=== PATIENT | male | born 1950 | race Caucasian/White ===

== ENCOUNTER 2022-01-21 09:02 | Emergency (ER) | payer MEDICARE, SELFPAY ==
[2022-01-21] VITALS (8 sets, daily range): BP systolic 151–192; BP diastolic 97–134; PULSE 74–80; RESP 14–20; TEMP 36.6; O2SAT 98–99; BMI 29.9
--- NOTE | 2022-01-21 09:12 | CT_ITS ---
WS: [id number] CT HEAD TECHNIQUE: Noncontrast CT of the head obtained from the skullbase to the vertex. CLINICAL INFORMATION: burry COMPARISON: None. DLP: 1253.[address] scans at [facility] use at least one of these dose optimization techniques: automated e xposure control; mA and/or kV adjustment per patient size (includes targeted exams where dose is matc hed to clinical indication); or iterative reconstruction. FINDINGS: No evidence of intracranial hemorrhage or mass effect. Ventricular system and basal cisterns are hamilton nt. Moderate small vessel changes with moderate parenchymal volume loss. Chronic lacunar infarcts RIG HT greater than LEFT involving the RIGHT reinoso radiata, RIGHT basal ganglia, and RIGHT thalamus. Polypoid mucosal thickening paranasal sinuses. Mastoid air cells well aerated. CT/CT head wo con* [id number] IMPRESSION: 1. No evidence of intracranial hemorrhage or mass effect. 2. Moderate small vessel changes. Moderate parenchymal volume loss. 3. Chronic lacunar infarcts in the RIGHT greater than LEFT basal ganglia and p ons RIGHT thalamus and reinoso radiata. 4. Intracranial vascular calcification. 5. Mastoid air cells well aerated. 6. Polypoid mucosal thickening paranasal sinuses. 7. No acute intracranial findings.
--- NOTE | 2022-01-21 09:18 | ECG_ITS ---
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 Measurements Intervals [place] Rate: 61 P: 69 OK: 142 QRS: 33 QRSD: 91 T: 74 QT: 391 QTc: 394 Interpretive Statements SINUS RHYTHM No previous ECG available for comparison Electronically Signed On 01-21-2022 12:46:13 CDT by Mahsa Kingston M.D. [id number]
[2022-01-21 09:22] LABS: Basophils % 0.4 %; Eosinophils # 0.1 10^3/uL (0.0-0.8); Eosinophils % 1.9 %; Hematocrit 50.4 % (42.0-52.0); Hemoglobin 16.6 g/dL (11.7-16.6); Lymphocytes # 1.5 10^3/uL (0.8-4.8); Lymphocytes % 21.2 %; Mean Corpuscular HGB Conc 32.9 g/dL (30.0-36.0); Mean Platelet Volume 10.5 fL (7.4-10.4); Monocytes # 0.6 10^3/uL (0.2-0.9); Monocytes % 8.4 %; Neutrophils # 4.93 10^3/uL (1.8-7.7); Neutrophils % 67.8 %; Nucleated Red Blood Cells % 0 %; Platelet Count 202 10^3/cmm (130-400); Red Blood Count 5.54 10^6/uL (4.1-5.3); Red Cell Distribution Width 12.8 % (12.1-15.1); White Blood Count 7.3 10^3/uL (4.0-10.0)
[2022-01-21] MEDS: hyDRALAzine 20 mg/mL INJ 1 mL IVP (09:30)
[2022-01-21 09:38] LABS: Alanine Aminotransferase 17 U/L (0-41); Alkaline Phosphatase 74 U/L (40-130); Anion Gap 14.9 (5-19); Aspartate Amino Transferase 16 U/L (0-40); Blood Urea Nitrogen 9 mg/dL (8-23); Carbon Dioxide 20 mmol/L (22-29); Chloride 106 mmol/L (98-107); Globulin 3.1 g/dL (1.3-4.6); Glucose 112 mg/dL (65-115); Osmolality Calculated 283 mOsm/kg (285-295); Potassium 3.9 mmol/L (3.5-5.1); Sodium 137 mmol/L (136-145); Total Bilirubin 0.7 mg/dL (0.15-1.2); Total Protein 7.1 g/dL (6.6-8.7)
--- NOTE | 2022-01-21 09:45 | ED_ITS ---
HPI - Dizziness General: Chief Complaint: Dizziness Stated Complaint: Murray/ Dizzy, Blurred Vision Time Seen by Provider: 01/21/22 09:10 Source: patient Mode of arrival: ambulatory History of Present Illness: HPI Narrative: 71-year-old male presents emergency department headache dizziness where he describes as a brain fog. He has had it intermittently for last couple days at 1 point he had some visual disturbance. Speech has been clear his visual disturbance has resolved. He has elevated blood pressure but is not taking medications nor has he in the past. MD elicited complaint: dizziness and lightheadedness Course Vital Signs: Vital signs: Vital Signs Temperature 98 F 01/21/22 09:03 Pulse Rate 74 01/21/22 10:30 Respiratory Rate 16 01/21/22 10:30 Blood Pressure 187/134 01/21/22 10:30 Pulse Oximetry 99 01/21/22 10:30 Oxygen Delivery Me thod 01/21/22 09:45 MDM - Dizziness Medical Decision Making Focal neurologic deficits noted. There is evidence of previous stroke. We will add amlodipine and lisinopril to control his blood pressure also add clopidogrel and atorvastatin based on the evidence of old strokes. We will get him set up to see outpatient primary care. If he has any worsening or change symptoms recheck. Medical Records I reviewed the patient's medical records. Lab Data I reviewed the patient's lab results. : 01/21/22 09:10 01/21/22 09:[address] 01/21/22 09:12 IMPRESSION: 1. No evidence of intracranial hemorrhage or mass effect. 2. Moderate small vessel changes. Moderate parenchymal volume loss. 3. Chronic lacunar infarcts in the RIGHT greater than LEFT basal ganglia and ninoska RIGHT thalamus and reinoso radiata. 4. Intracranial vascular calcification. 5. Mastoid air cells well aerated. 6. Polypoid mucosal thickening paranasal sinuses. 7. No acute intracranial findings. Laboratory Results WBC 7.3 10^3/uL (4.0-10.0) 01/21/22 09:10 RBC 5.54 10^6/uL (4.1-5.3) H 01/21/22 09:10 Hgb 16.6 g/dL (11.7-16.6) 01/21/22 09:10 Hct 50.4 % (42.0-52.0) 01/21/22 09:10 MCV 91.0 fl (80-94) 01/21/22 09:10 MCH 30.0 pg (28.0-34.0) 01/21/22 09:10 MCHC 32.9 g/dL (30.0-36.0) 01/21/22 09:10 RDW 12.8 % (12.1-15.1) 01/21/22 09:10 Plt Count 202 10^3/cmm (130-400) 01/21/22 09:10 MPV 10.5 fL (7.4-10.4) H 01/21/22 09:10 Neut % (Auto) 67.8 % 01/21/22 09:10 Lymph % (Auto) 21.2 % 01/21/22 09:10 [place] % (Auto) 8.4 % 01/21/22 09:10 Eos % (Auto) 1.9 % 01/21/22 09:10 Baso % (Auto) 0.4 % 01/21/22 09:10 Neut # (Auto) 4.93 10^3/uL (1.8-7.7) 01/21/22 09:10 Lymph # (Auto) 1.5 10^3/uL (0.8-4.8) 01/21/22 09:10 [place] # (Auto) 0.6 10^3/uL (0.2-0.9) 01/21/22 09:10 Eos # (Auto) 0.1 10^3/uL (0.0-0.8) 01/21/22 09:10 Baso # (Auto) 0.0 10^3/uL (0.0-0.1) 01/21/22 09:10 Nucleated RBC % (auto) 0 % 01/21/22 09:10 Nucleated RBCs # 0.0 /100WBC 01/21/22 09:10 Sodium 137 mmol/L (136-145) 01/21/22 09:10 Potassium 3.9 mmol/L (3.5-5.1) 01/21/22 09:10 Chloride 106 mmol/L (98-107) 01/21/22 09:10 Carbon Dioxide 20 mmol/L (22-29) L 01/21/22 09:10 Anion Gap 14.9 (5-19) 01/21/22 09:10 BUN 9 mg/dL (8-23) 01/21/22 09:10 Creatinine 0.9 mg/dL (0.7-1.2) 01/21/22 09:10 GFR Calculation Not Reportable 01/21/22 09:10 Glucose 112 mg/dL (65-115) 01/21/22 09:10 Calculated Osmolality 283 mOsm/kg (285-295) L 01/21/22 09:10 Calcium 9.0 mg/dL (8.5-10.5) 01/21/22 09:10 Total Bilirubin 0.7 mg/dL (0.15-1.2) 01/21/22 09:10 AST 16 U/L (0-40) 01/21/22 09:10 ALT 17 U/L (0-41) 01/21/22 09:10 Alkaline Phosphatase 74 U/L (40-130) 01/21/22 09:10 Total Protein 7.1 g/dL (6.6-8.7) 01/21/22 09:10 Albumin 4.0 g/dL (3.5-5.2) 01/21/22 09:10 Globulin 3.1 g/dL (1.3-4.6) 01/21/22 09:10 Discharge Plan Discharge Patient Disposition: Home Clinical Impression: Benign essential HTN Condition: Stable Prescriptions: New amlodipine 10 mg tablet 10 mg PO DAILY Qty: 30 0RF lisinopril 10 mg tablet 10 mg PO DAILY Qty: 30 0RF atorvastatin 40 mg tablet 40 mg PO DAILY Qty: 30 0RF clopidogrel 75 mg tablet 75 mg PO DAILY Qty: 30 0RF Discharge Orders: Discharge ED (Routine); Ordered 01/21/22 Ordered By: Nick Clinton Discharge Diet: Usual diet Discharge Activity: Resume usual activity Patient Instructions: Opioid Safety, Pain Management Activity Restrictions/Additional Instructions: chemistry account manager will make arrangements for you to follow-up with primary care. Coding Level of Care Code ED Telephonic Case Manager for Bc Richards
[2022-01-21] MEDS: amlodipine 10 mg Tablet PO (10:16)
[2022-01-21] MEDS: lisinopril 20 mg Tablet PO (10:16)
--- NOTE | 2022-01-22 10:23 | DCPLANNER ---
sales and production manager had message to speak with patient about getting established with a primary care physician, unable to speak with patient at this time, and unable to leave a voicemail for patient.
== END 2022-01-21 10:45 | disposition home or self-care (01) ==
PROVIDERS: Emergency Provider Family Medicine
DX: I10 Essential (primary) hypertension (principal); Z86.73 Personal history of transient ischemic attack (TIA), and cerebral infarction without residual deficits
CPT/HCPCS: 36415; 70450; 80053; 85025; 93005; 96374; 99285; J0360

== ENCOUNTER → 2022-01-26 12:04 | Outpatient (BNVA) | payer MEDICARE, SELFPAY | PROVIDERS: Visit Provider Nurse Practitioner Family | DX: I10 Essential (primary) hypertension (principal); Z12.5 Encounter for screening for malignant neoplasm of prostate; F17.200 Nicotine dependence, unspecified, uncomplicated; R06.09 Other forms of dyspnea | CPT/HCPCS: 80061; 84443; G0103 ==

== ENCOUNTER 2022-02-02 18:24 | Emergency (ER) | payer MEDICARE, SELFPAY ==
[2022-02-02 18:46] VITALS: BP 145/83; PULSE 90; RESP 16; TEMP 36.8; O2SAT 95
--- NOTE | 2022-02-02 18:51 | ECG_ITS ---
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 Measurements Intervals [place] Rate: 66 P: 77 OK: 137 QRS: 56 QRSD: 93 T: 72 QT: 381 QTc: 402 Interpretive Statements SINUS RHYTHM INCOMPLETE RIGHT BUNDLE BRANCH BLOCK [90+ ms QRS DURATION, TERMINAL R IN V1/V2, 40+ ms S IN I/aVL/V4/V5/V6] Compared to ECG 01/21/2022 09:18:09 Incomplete right bundle-branch block now present Electronically Signed On 02-02-2022 22:43:37 CDT by Albert Yin M.D. [id number]
--- NOTE | 2022-02-02 19:26 | XRR_ITS ---
PROCEDURE INFORMATION: Exam: XR Chest Exam date and time: 02/02/2022 7:33 PM Age: 71 years old Clinical indication: Dyspnea; Additional info: SOB TECHNIQUE: Imaging protocol: Radiologic exam of the chest. Views: 1 view. COMPARISON: No relevant prior studies available. FINDINGS: Lungs: Unremarkable. No consolidation. Pleural spaces: Unremarkable. No pleural effusion. No pneumothorax. Heart/Mediastinum: Unremarkable. No cardiomegaly. Bones/joints: Unremarkable. XR/XR chest 1V portable [id number] IMPRESSION: No acute findings.
[2022-02-02 19:42] LABS: Basophils % 0.5 %; Eosinophils # 0.3 10^3/uL (0.0-0.8); Eosinophils % 4.3 %; Hematocrit 46.7 % (42.0-52.0); Hemoglobin 15.6 g/dL (11.7-16.6); Lymphocytes # 1.8 10^3/uL (0.8-4.8); Lymphocytes % 22.6 %; Mean Corpuscular HGB Conc 33.4 g/dL (30.0-36.0); Mean Corpuscular Hemoglobin 29.7 pg (28.0-34.0); Monocytes # 0.7 10^3/uL (0.2-0.9); Monocytes % 8.5 %; Neutrophils # 4.94 10^3/uL (1.8-7.7); Neutrophils % 63.7 %; Nucleated Red Blood Cells % 0 %; Platelet Count 255 10^3/cmm (130-400); Red Blood Count 5.25 10^6/uL (4.1-5.3); Red Cell Distribution Width 12.7 % (12.1-15.1); White Blood Count 7.8 10^3/uL (4.0-10.0)
[2022-02-02 19:43] VITALS: BP 140/86; PULSE 83; RESP 18; O2SAT 94
--- NOTE | 2022-02-02 19:51 | CTR_ITS ---
PROCEDURE INFORMATION: Exam: CT Head Without Contrast Exam date and time: 02/02/2022 8:25 PM Age: 71 years old Clinical indication: Condition or disease; Other: Parasthesia left side. Hbp; Additional info: Paresthesia on the left side, no difficulty speaking TECHNIQUE: Imaging protocol: Computed tomography of the head without contrast. Radiation optimization: All CT scans at this facility use at least one of these dose optimization techniques: automated exposure control; mA and/or kV adjustment per patient size (includes targeted exams where dose is matched to clinical indication); or iterative reconstruction. COMPARISON: CT head wo con* [id number] 01/21/2022 9:22 AM RADIATION DOSE METRICS: Total DLP (mGy-cm): 1110.88 FINDINGS: Brain: Mild to moderate severity diffuse cerebral cortical volume loss. Negative for intracranial hemorrhage. No acute brain ischemia is identified. No intracranial mass.There is mild diffuse heterogeneity of the white matter attenuation, consistent with chronic white matter ischemic changes. Rosenthal matter and white matter interfaces are preserved. Suspect small chronic bilateral basal ganglia lacunar infarcts. Cerebral ventricles: No ventriculomegaly. Paranasal sinuses: Visualized sinuses are unremarkable. No fluid levels. Mastoid air cells: Visualized mastoid air cells are well aerated. Bones/joints: Unremarkable. No acute fracture. Soft tissues: Unremarkable. CT/CT head wo con* [id number] IMPRESSION: 1. Negative for acute intracranial abnormality. 2. Stable exam from comparison.
[2022-02-02 19:54] LABS: INR 1.03 (0.8-1.2)
--- NOTE | 2022-02-02 19:55 | W.ED.GENADLT ---
HPI - General Adult General: Chief complaint: General Medical Stated complaint: SOB\High Blood Pressure Time Seen by Provider: 02/02/22 19:24 Source: patient Mode of arrival: ambulatory Limitations: no limitations History of Present Illness: 71-year-old male who states that he started having some paresthesias yesterday that is continued today states its gotten worse over the last 4 hours he states he has had some numbness to his left leg and some slight numbness to his left arm he denies any weakness no slurred speech no vision changes he is recently seen here and diagnosed with new onset hypertension has been taking blood pressure medicine he states his blood pressures been running little high at home here is normal denies chest pain denies shortness of breath. Associated symptoms: Deny chest pain, dyspnea, nausea, rash or vomiting Review of Systems Const: Denies: fever(s), chills, body aches or change in appetite Eyes: Denies: blurry vision or eye discomfort ENMT: Denies: throat pain or dental pain Card: Denies: chest pain Resp: Denies: dyspnea GI: Denies: abdominal pain, nausea, vomiting or diarrhea : Denies: dysuria Musc: Denies: neck pain or back pain Skin/Breast: Denies: rash Neuro: Reports: numbness in extremities Psych: Denies: depression Jeremy/Lymph: Denies: easy bruising All/Imm: Denies: urticaria PFSH ED PFSH: Social History Smoking and tobacco status: never smoked Physical Exam Const: COMMON NORMALS: no acute distress, patient oriented x3 and healthy appearing HENMT: COMMON NORMALS: normocephalic and atraumatic HEAD & SCALP: normocephalic and atraumatic Eye: COMMON NORMALS: Equal, round and reactive pupils present and EOMs intact bilaterally PUPIL: Yes Equal, round and reactive pupils present Neck/C-Spine: COMMON NORMALS: full ROM and supple Chest: COMMONS NORMALS: normal inspection of the chest and normal palpation of entire chest wall Resp: COMMON NORMALS: normal respiratory effort, No retractions, No use of accessory muscles and clear to auscultation bilaterally AUSCULTATION: clear to auscultation bilaterally Cardio: COMMON NORMALS: regular rate, regular rhythm and No murmurs present (Cardio) RATE: regular rate RHYTHM: regular rhythm GI: COMMON NORMALS: Normal to inspection, nondistended, normoactive bowel sounds present, Soft to palpation, non-tender and no masses PALPATION: Yes Soft to palpation Extremity: COMMON NORMALS: normal to inspection and full ROM Neuro: COMMON NORMALS: patient oriented x3, moves all extremities and no focal motor deficits Psych: COMMON NORMALS: mental status grossly normal, Normal thought process present and cooperative THOUGHT PROCESS: Normal thought process present Skin: COMMON NORMALS: no rashes or lesions noted and no wounds GENERAL SKIN EXAM: no rashes or lesions noted Course Vital Signs: Vital signs: Vital Signs Temperature 98.3 F 02/02/22 18:46 Pulse Rate 80 02/02/22 21:04 Respiratory Rate 16 02/02/22 21:04 Blood Pressure 148/98 02/02/22 21:04 Pulse Oximetry 97 02/02/22 21:04 Oxygen Delivery Me thod 02/02/22 19:43 MDM - General Adult Medical Decision Making Patient presents here with paresthesias to the left side he has no other findings on exam his head CT here is normal I spoke to him at length did offer him admission for an MRI he states that he rather follow-up with his PCP and have an MRI outpatient insulin he could be having a mild stroke we could not ruled out he still would like to go home I informed if he has any worsening symptoms he is to return immediately he understands agrees to plan he does already take a baby aspirin a day. Lab Data : 02/02/22 19:35 02/02/22 19:35 Radiology Impressions Chest X-Ray 02/02/22 19:26 IMPRESSION: No acute findings. Head CT 02/02/22 19:51 IMPRESSION: 1. Negative for acute intracranial abnormality. 2. Stable exam from comparison. Laboratory Results WBC 7.8 10^3/uL (4.0-10.0) 02/02/22 19:35 RBC 5.25 10^6/uL (4.1-5.3) 02/02/22 19:35 Hgb 15.6 g/dL (11.7-16.6) 02/02/22 19:35 Hct 46.7 % (42.0-52.0) 02/02/22 19:35 MCV 89.0 fl (80-94) 02/02/22 19:35 MCH 29.7 pg (28.0-34.0) 02/02/22 19:35 MCHC 33.4 g/dL (30.0-36.0) 02/02/22 19:35 RDW 12.7 % (12.1-15.1) 02/02/22 19:35 Plt Count 255 10^3/cmm (130-400) 02/02/22 19:35 MPV 9.0 fL (7.4-10.4) 02/02/22 19:35 Neut % (Auto) 63.7 % 02/02/22 19:35 Lymph % (Auto) 22.6 % 02/02/22 19:35 [place] % (Auto) 8.5 % 02/02/22 19:35 Eos % (Auto) 4.3 % 02/02/22 19:35 Baso % (Auto) 0.5 % 02/02/22:35 Neut # (Auto) 4.94 10^3/uL (1.8-7.7) 02/02/22 19:35 Lymph # (Auto) 1.8 10^3/uL (0.8-4.8) 02/02/22 19:35 [place] # (Auto) 0.7 10^3/uL (0.2-0.9) 02/02/22 19:35 Eos # (Auto) 0.3 10^3/uL (0.0-0.8) 02/02/22 19:35 Baso # (Auto) 0.0 10^3/uL (0.0-0.1) 02/02/22 19:35 Nucleated RBC % (auto) 0 % 02/02/22 19:35 Nucleated RBCs # 0.0 /100WBC 02/02/22 19:35 PT 13.80 SECONDS (12.1-14.9) 02/02/22:35 INR 1.03 (0.8-1.2) 02/02/22 19:35 Sodium 138 mmol/L (136-145) 02/02/22 19:35 Potassium 4.1 mmol/L (3.5-5.1) 02/02/22 19:35 Chloride 103 mmol/L (98-107) 02/02/22 19:35 Carbon Dioxide 26 mmol/L (22-29) 02/02/22 19:35 Anion Gap 13.1 (5-19) 02/02/22 19:35 BUN 15 mg/dL (8-23) 02/02/22 19:35 Creatinine 0.8 mg/dL (0.7-1.2) 02/02/22 19:35 GFR Calculation Not Reportable 02/02/22 19:35 Glucose 107 mg/dL (65-115) 02/02/22 19:35 Calculated Osmolality 287 mOsm/kg (285-295) 02/02/22 19:35 Calcium 9.2 mg/dL (8.5-10.5) 02/02/22 19:35 Total Bilirubin 0.4 mg/dL (0.15-1.2) 02/02/22 19:35 AST 15 U/L (0-40) 02/02/22 19:35 ALT 13 U/L (0-41) 02/02/22 19:35 Alkaline Phosphatase 77 U/L (40-130) 02/02/22 19:35 Troponin T Baseline 13 ng/L (0-15) 02/02/22 19:35 NT-Pro-B Natriuret Pep 151 pg/mL (0-125) H 02/02/22 19:35 Total Protein 6.9 g/dL (6.6-8.7) 02/02/22 19:35 Albumin 3.9 g/dL (3.5-5.2) 02/02/22 19:35 Globulin 3.0 g/dL (1.3-4.6) 02/02/22 19:35 EKG Data EKG 1: I personally reviewed and interpreted this EKG as follows: EKG interpretation date: 02/02/22 EKG interpretation time: 19:31 Interpretation: nsr hr [address] or t wave abnormalities qrs 93 qtc 395 Computer generated interpretation: Chest X-Ray 02/02/22 19:26 IMPRESSION: No acute findings. Head CT 02/02/22 19:51 IMPRESSION: 1. Negative for acute intracranial abnormality. 2. Stable exam from comparison. Discharge Plan Discharge Patient Disposition: Home Clinical Impression: Paresthesia Condition: Stable Prescriptions: No Action aspirin 81 mg tablet,chewable 81 mg PO DAILY lisinopril 20 mg tablet 20 mg PO DAILY 30 Days Qty: 30 0RF amlodipine 10 mg tablet 10 mg PO DAILY Qty: 30 0RF Multi-Day Tablet 1 tab PO DAILY Discharge Orders: Discharge ED (Routine); Ordered 02/02/22 Ordered By: Acosta Welch Discharge Diet: Advance as tolerated Discharge Activity: Resume usual activity Patient Instructions: Paresthesia (ED) Coding Level of Care Code ED Stock Handler Floorperson for Bc Richards Exam Comprehensive NIH stroke score NIHSS Level Of Consciousness - 1a: 0 Level Of Consciousness Questions - 1b: Both Correct Level Of Consciousness Commands - 1c: Both Correct Best Gaze - 2: Normal Visual Hernandez - 3: No Visual Loss Facial Palsy - 4: Normal Motor Arm Right - 5: No Drift Motor Arm Left - 5: No Drift Motor Leg Right - 6: No Drift Motor Leg Left - 6: No Drift Limb Ataxia - 7: Absent Sensory - 8: Normal Best Language - 9: No Aphasia Dysarthia - 10: Normal Extinction And Inattention - 11: 0 Score Total Score: 0
[2022-02-02 20:10] LABS: Troponin(5th) Baseline 13 ng/L (0-15)
[2022-02-02 20:19] LABS: Alanine Aminotransferase 13 U/L (0-41); Albumin Level 3.9 g/dL (3.5-5.2); Alkaline Phosphatase 77 U/L (40-130); Aspartate Amino Transferase 15 U/L (0-40); Blood Urea Nitrogen 15 mg/dL (8-23); Calcium 9.2 mg/dL (8.5-10.5); Carbon Dioxide 26 mmol/L (22-29); Chloride 103 mmol/L (98-107); Glucose 107 mg/dL (65-115); NT Pro B Type Natriuretic Pept 151 pg/mL (0-125); Osmolality Calculated 287 mOsm/kg (285-295); Sodium 138 mmol/L (136-145); Total Bilirubin 0.4 mg/dL (0.15-1.2); Total Protein 6.9 g/dL (6.6-8.7)
[2022-02-02 20:31] LABS: Anion Gap 13.1 (5-19); Potassium 4.1 mmol/L (3.5-5.1)
[2022-02-02 21:04] VITALS: BP 148/98; PULSE 80; RESP 16; O2SAT 97
== END 2022-02-02 21:05 | disposition home or self-care (01) ==
PROVIDERS: Emergency Provider Emergency Medicine
DX: R20.2 Paresthesia of skin (principal); I10 Essential (primary) hypertension; Z79.82 Long term (current) use of aspirin
CPT/HCPCS: 36415; 70450; 71045; 80053; 83880; 84484; 85025; 85610; 93005; 99285

== ENCOUNTER 2022-03-31 09:05 | Outpatient (CLI) | payer MEDICARE, SELFPAY ==
--- NOTE | 2022-03-31 09:17 | USCV_ITS ---
Azael Fulton Age: 69 Gender: M : 09/28/1952 Exam Date: 03/31/2022 10:31 Ordering Phys: Shahid George MD Technologist: Exam Location: [facility] [place]_ Indication: paresthesia RIGHT LEFT Brachial 140.00 mmHg Brachial 142.00 mmHg Pressure (mmHg) Waveform Pressure (mmHg) Waveform 149.00 A/C TECH 150.0 151.00 DPA 146.0 1.06 Ankle/Brachial Index 1.06 FINDINGS The DIONISIO 1.06 bilaterally CONCLUSIONS Normal resting ABIs bilaterally. No significant arterial obstruction, based on the above findings. Dr Jamel Anthony MD [facility] (Electronically Signed) Final Date: 31 March 2022 21:28 S
--- NOTE | 2022-03-31 09:17 | MR_ITS ---
WS: [id number] MRI BRAIN WITHOUT CONTRAST HISTORY: PARESTHESIA OF LEFT ARM/LEG COMPARISON: CT head 02/02/2022 TECHNIQUE: Diffusion imaging, multiplanar T1, T2 and FLAIR imaging obtained. Small acute lacunar infarct posterior RIGHT temporal lobe. There is an additional very tiny subcortic al infarct in the posterior LEFT parietal occipital region. No definite additional infarcts. Mild atrophy. There is significant T2 and FLAIR signal hyperintensity in a periventricular and subcor tical white matter distribution. Some of these infarcts do appear perpendicular to the corpus callosu m. There are a few scattered susceptibility hypointensities. Small susceptibility lesion in the RIGHT cerebellum. Small bilateral thalamic and LEFT basal ganglia hemosiderin deposits. Ventricles and extra-axial spaces are normal. No inferior displacement of cerebellar tonsils. The sella turcica and pituitary gland are unremarkabl e. Dural venous sinuses and king [place] of [place] demonstrate no abnormality on this unenhanced studies. Paranasal sinuses: Marked mucoperiosteal thickening throughout the ethmoid air cells and mucoperioste al thickening involving the nasal turbinates and the lining of the maxillary sinuses. Mastoid air cells: Normal. Calvarium and scalp: Intact. MR/MR head wo con* [id number] IMPRESSION: 1. Very small acute lacunar infarcts in the posterior RIGHT temporal and poste rior LEFT parieto-occipital lobes. Due to separate arterial distributions consi rodolfo embolic source. Cardiac evaluation may be of benefit. 2. There are also small scattered hemosiderin depositions which may indicate a myloid angiopathy. 3. Moderate small vessel ischemic type changes throughout the white matter. Du e to the extent of disease consider vasculitis or demyelination. These findings also may be due to long-term hypertension or diabetes. 4. Marked thickening of the nasal turbinates with chronic sinusitis disease.
== END 2022-03-31 09:06 | disposition home or self-care (01) ==
PROVIDERS: Visit Provider Family Medicine
DX: R20.2 Paresthesia of skin (principal); I63.9 Cerebral infarction, unspecified; J32.9 Chronic sinusitis, unspecified
CPT/HCPCS: 70551; 93922

== ENCOUNTER 2022-04-17 10:52 | Outpatient (CLI) | payer MEDICARE, SELFPAY ==
--- NOTE | 2022-04-17 11:11 | USCV_ITS ---
Azael Fulton Age: 69 Gender: M : 09/28/1952 Exam Date: 04/17/2022 11:21 Ordering Phys: Shahid George MD Technologist: Brenad Muñiz [place]am [place] [facility] [place]ication: CVA BP: / HR: 75 Rhythm: Sinus Technical Quality: Technically Difficult Study MEASUREMENTS (Male / Female) Normal Values 2D ECHO LV Diastolic Diameter PLAX 4.6 cm 4.2 - 5.9 / 3.9 - 5.3 cm LV Systolic Diameter PLAX 3.3 cm LV Chamber Size 4.1 cm IVS Diastolic Thickness 1.2 cm 0.6 - 1.0 / 0.6 - 0.9 cm IVS Systolic Thickness 1.6 cm LVPW Diastolic Thickness 1.3 cm 0.6 - 1.0 / 0.6 - 0.9 cm LVPW Systolic Thickness 1.6 cm RV Chamber Size 3.9 cm LVOT Diameter 2.0 cm LV Ejection Fraction 2D Teich 62.3 % LV Ejection Fraction MOD 2C 32.9 % LV Ejection Fraction 2C AL 33.9 % LA Diameter 3.0 cm LA Width 3.3 cm LA Height 2.9 cm RA Width 4.0 cm RA Height 4.3 cm Aorta at Sinotubular Diameter 3.1 cm IVC Diameter 1.9 cm M-MODE Aortic Annulus Diameter 5.8 cm LA Ao Ratio MM 0.7 MV E Point Septal Separation 0.7 cm DOPPLER AV Peak Velocity 125.0 cm/s LVOT Peak Velocity 114.0 cm/s AV Area Cont Eq vti 2.4 cm squared AV Area Cont Eq pk 3.0 cm squared MV Area PHT 3.0 cm squared Mitral E to A Ratio 0.7 MV E' Velocity 37.5 cm/s Mitral E to MV E' Ratio 9.0 Mitral E to LV E' Lateral Ratio 8.4 Mitral E to LV E' Septal Ratio 9.8 TR Peak Velocity 212.1 cm/s TR Peak Gradient 18.0 mmHg TR Mean Velocity 146.3 cm/s TR Mean Gradient 9.9 mmHg TR Velocity Time Integral 41.5 cm TV Peak E Velocity 51.0 cm/s Right Atrial Pressure 3.0 mmHg Pulmonary Artery Systolic Pressu 21.0 mmHg RV Acceleration Time 0.1 s RV Ejection Time 0.3 s RV AcT/ET 0.4 FINDINGS Left Ventricle Normal left ventricular size, systolic function and wall thickness, with no regional wall motion abnormalities. Visually estimated EF 55%. Normal left ventricular wall thickness. Normal diastolic filling pattern. Right Ventricle The right ventricle is normal in size and function. Right Atrium The right atrium is normal in size. Left Atrium The left atrium is normal in size. Mitral Valve Structurally normal mitral valve without significant stenosis or prolapse. There is no mitral regurgitation. Aortic Valve Structurally normal aortic valve without significant sclerosis or stenosis. There is no aortic regurgitation. Tricuspid Valve Structurally normal tricuspid valve without significant stenosis or regurgitation. Pulmonary artery systolic pressure is normal. Pulmonic Valve Structurally normal pulmonic valve without significant stenosis. There is no pulmonic regurgitation. Pericardium Normal pericardium without effusion. Aorta Normal ascending aorta dimension. IVC The inferior vena cava appears normal. CONCLUSIONS Normal left ventricular size, systolic function and wall thickness, with no regional wall motion abnormalities. Visually estimated EF 55%. Normal left ventricular wall thickness. Normal diastolic filling pattern. Osmar Lee MD (Electronically Signed) Final Date: 17 April 2022 13:31 S
== END 2022-04-17 10:53 | disposition home or self-care (01) ==
PROVIDERS: Visit Provider Family Medicine
DX: I63.9 Cerebral infarction, unspecified (principal)
CPT/HCPCS: 93306